=== PATIENT | female | born 1965 | race Caucasian/White ===

== ENCOUNTER 2024-09-19 08:35 | Outpatient (CLI) | payer OTHER ==
[2024-09-19] MEDS ORDERED: E-Z-HD 98% W/W 340GM BOT (x-ray ONLY) ONE (08:42)
[2024-09-19] MEDS ORDERED: Barium Sulfate 96% 176 GM BOT (xray ONLY) ONE (08:42)
== END 2024-09-19 08:36 | disposition home or self-care (01) ==
LOC: RAD 08:35
PROVIDERS: ATTEND Physician Assistant Medical
DX: K21.9 Gastro-esophageal reflux disease without esophagitis (principal); K59.00 Constipation, unspecified; K64.9 Unspecified hemorrhoids; R13.10 Dysphagia, unspecified; K44.9 Diaphragmatic hernia without obstruction or gangrene
CPT/HCPCS: 74220